=== PATIENT | male | born 1970 | race Caucasian/White ===

== ENCOUNTER → 2017-06-29 | Outpatient (CLI) | payer MEDICAID ==
[~2017-06-29] MED LIST: AMIT25TA PO; CLIN300C8 PO; GABA300C10 PO; HYDR-3237 PO; HYDR-3307 PO; IBUP-1222 PO; SERT100T PO; [UNRECOGNIZED DRUG - REMARK]
[2017-06-29 13:42] LABS: BASOPHILS # (AUTO) 0.05 x10^3/uL (0-0.1); BASOPHILS % (AUTO) 1 % (0-1); EOSINOPHILS # (AUTO) 0.46 x10^3/uL (0-0.4); EOSINOPHILS % (AUTO) 7 % (1-7); LYMPHOCYTES # (AUTO) 2.48 x10^3/uL (1-3.4); LYMPHOCYTES % (AUTO) 40 % (22-44); MD NO; MEAN CORPUSCULAR HEMOGLOBIN 31.6 pg (27.5-34.5); MEAN CORPUSCULAR HGB CONC 34.2 g/dL (33.2-36.2); MEAN CORPUSCULAR VOLUME 92.4 fL (81-97); MEAN PLATELET VOLUME 8.1 fL (7.4-10.4); MONOCYTES % (AUTO) 8 % (2-9); NEUTROPHILS # (AUTO) 2.79 x10^3/uL (1.8-6.8); NEUTROPHILS % (AUTO) 45 % (42-75); PLATELET COUNT 308 x10^3/uL (130-400); RED BLOOD COUNT 4.69 x10^6/uL (4.38-5.82); RED CELL DISTRIBUTION WIDTH 13.2 % (9.4-14.8)
[2017-06-29 13:50] LABS: ANION GAP 5 mmol/L (5-15); CALCIUM 8.7 mg/dL (8.5-10.1); CHLORIDE 106 mmol/L (98-107); CREATININE 0.73 mg/dL (0.7-1.3)
[2017-06-29 13:52] LABS: MICROSCOPIC NOT IND
[2017-06-29 13:53] LABS: INTERNATIONAL NORMALIZED RATIO 1.02 (0.93-1.1); PROTHROMBIN TIME 10.6 Seconds (9.6-11.5)
[2017-06-29 14:20] LABS: CULTURE INDICATED? NO
== END | disposition home or self-care (01) ==
LOC: STAR 12:29
PROVIDERS: ATTEND Neurological Surgery
DX: Z01.818 Encounter for other preprocedural examination (principal); M54.12 Radiculopathy, cervical region; M50.80 Other cervical disc disorders, unspecified cervical region
CPT/HCPCS: 36415; 71046; 80048; 81003; 85025; 85610; 85730; 93005

== ENCOUNTER 2017-07-03 05:33 | Inpatient (IN) | payer MEDICAID ==
[~2017-07-03] VITALS: Ht 175.3 cm; Wt 52.7 kg
[2017-07-03] MEDS ORDERED: LACTATED RINGERS 1,000 ML IV SCH (06:05)
[2017-07-03 06:06] VITALS: BP 127/58
[2017-07-03] MEDS ORDERED: THROMBIN 5,000 UNIT VIAL TP ONE (06:10)
[2017-07-03] MEDS ORDERED: BUPIVACAINE/PF 0.5% ONE (06:10)
[2017-07-03] MEDS ORDERED: EPINEPHRINE 1 MG/ML, 1ML ONE (06:11)
[2017-07-03] MEDS ORDERED: BACITRACIN 50,000 UNIT ONE (06:11)
[2017-07-03] MEDS ORDERED: PROMETHAZINE 12.5 MG SUPP PR PRN (07:00)
[2017-07-03] MEDS ORDERED: LABETALOL 5MG/ML, 20ML IV PRN ×2 (07:00→11:30)
[2017-07-03] MEDS ORDERED: DIAZEPAM 5 MG/ML, 2ML IVPush PRN (07:00)
[2017-07-03] MEDS ORDERED: ACETAMINOPHEN 325 MG TABLET PO PRN (07:00)
[2017-07-03] MEDS ORDERED: OXYcodone 5 MG/5 ML ORAL.SOL UDC PO PRN (07:00)
[2017-07-03] MEDS ORDERED: MEPERIDINE/PF 25MG/0.5ML IVPush PRN (07:00)
[2017-07-03] MEDS ORDERED: hydrALAzine 20 MG/ML, 1ML IV PRN (07:00)
[2017-07-03] MEDS ORDERED: ONDANSETRON 2MG/ML, 2ML IVPush PRN (07:00)
[2017-07-03] MEDS ORDERED: PROMETHAZINE 25 MG/ML, 1ML IV PRN (07:00)
[2017-07-03] MEDS ORDERED: ROCURONIUM 10MG/ML,5ML ONE (07:01)
[2017-07-03] MEDS ORDERED: CEFAZOLIN 1,000 MG ONE (07:01)
[2017-07-03] MEDS ORDERED: NEOSTIGMINE 1 MG/ML, 10ML ONE (07:01)
[2017-07-03] MEDS ORDERED: SUCCINYLCHOLINE 20 MG/ML, 10ML ONE (07:01)
[2017-07-03] MEDS ORDERED: PROPOFOL 10 MG/ML, 20ML ONE (07:01)
[2017-07-03] MEDS ORDERED: MIDAZOLAM 1 MG/ML, 5ML ONE (07:01)
[2017-07-03] MEDS ORDERED: GLYCOPYRROLATE 0.2MG/1ML, 5ML ONE (07:01)
[2017-07-03] MEDS ORDERED: FENTANYL PF 100 MCG/2ML ONE ×2 (07:01→09:29)
[2017-07-03] MEDS: HYDROmorphone 1 MG/ML, 1ML IV PRN ×6 (09:28→10:15)
[2017-07-03] MEDS ORDERED: HYDROmorphone 2 MG/ML, 1ML ONE ×2 (09:29→10:14)
[2017-07-03] MEDS ORDERED: ACETAMINOPHEN 650 MG/20.3 ML UDC ONE (09:29)
[2017-07-03] MEDS ORDERED: METHOCARBAMOL 750 MG TABLET ONE (09:29)
[2017-07-03] MEDS ORDERED: OXYcodone 5 MG/5 ML ORAL.SOL UDC ONE (09:30)
[2017-07-03] MEDS: FENTANYL PF 100 MCG/2ML IV PRN ×2 (09:40→09:59)
[2017-07-03] MEDS ORDERED: METHOCARBAMOL 750 MG TABLET PO ONE (10:00)
[2017-07-03 11:05] VITALS: BP 119/72
[2017-07-03] MEDS ORDERED: BISACODYL 10 MG SUPP PR PRN (11:30)
[2017-07-03] MEDS ORDERED: METHOCARBAMOL 750 MG TABLET PO PRN (11:30)
[2017-07-03] MEDS: AMITRIPTYLINE MC SCH ×2 (11:30→19:30)
[2017-07-03] MEDS ORDERED: ONDANSETRON 2MG/ML, 2ML IV PRN (11:30)
[2017-07-03] MEDS ORDERED: DIPHENHYDRAMINE 50 MG CAPSULE PO PRN (11:30)
[2017-07-03] MEDS ORDERED: HYDROcodone/APAP 10/325 MG TABLET PO PRN (11:30)
[2017-07-03] MEDS ORDERED: PROMETHAZINE 25 MG/ML, 1ML IM PRN (11:30)
[2017-07-03] MEDS ORDERED: MAGNESIUM HYDROXIDE 8%, 30ML UDC PO PRN (11:30)
[2017-07-03] MEDS: MORPHINE SULFATE 4 MG/ML, 1ML IV PRN ×2 (12:26→17:28)
[2017-07-03] MEDS: D5%-0.9% NACL+KCL 20MEQ 1,000 ML IV SCH ×2 (12:28→21:30)
[2017-07-03 13:50] VITALS: BP 139/89
[2017-07-03] MEDS: CEFAZOLIN PMX 1GM/50ML 50 ML IVPB SCH (15:16)
[2017-07-03 19:23] VITALS: BP 122/74
[2017-07-03] MEDS ORDERED: ZOLPIDEM 5MG TABLET PO PRN (21:00)
[2017-07-03] MEDS: OXYcodone/APAP 5/325MG TABLET PO PRN (22:53)
[2017-07-03 23:41] VITALS: BP 121/78
[2017-07-04] MEDS: CEFAZOLIN PMX 1GM/50ML 50 ML IVPB SCH (00:20)
[2017-07-04] MEDS: MORPHINE SULFATE 4 MG/ML, 1ML IV PRN ×2 (00:34→04:50)
[2017-07-04 03:03] VITALS: BP 111/68
[2017-07-04] MEDS: OXYcodone/APAP 5/325MG TABLET PO PRN ×2 (03:19→07:30)
[2017-07-04] MEDS: AMITRIPTYLINE MC SCH (03:30)
[2017-07-04 06:58] VITALS: BP 126/79
[2017-07-04] MEDS: D5%-0.9% NACL+KCL 20MEQ 1,000 ML IV SCH (07:30)
[2017-07-04] MEDS ORDERED: METH750T87 PO (08:54)
[2017-07-04] MEDS ORDERED: SENNA/DOCUSATE TABLET PO SCH (09:00)
[2017-07-04] MEDS ORDERED: CEPH-368 PO (09:17)
[2017-07-04] MEDS ORDERED: OXYC5CAP2 PO (09:17)
== END 2017-07-04 09:54 | disposition home or self-care (01) | DRG 473 ==
LOC: ORIP 05:33 → 4NOR 10:56 → DCLOUNGE 07-04 09:40
PROVIDERS: ADMIT Neurological Surgery; ATTEND Neurological Surgery
PROC: 0RB30ZZ Excision of Cervical Vertebral Disc, Open Approach (ICD-10-PCS; 2017-07-03)
PROC: 01N10ZZ Release Cervical Nerve, Open Approach (ICD-10-PCS; 2017-07-03)
PROC: 4A11X4G Monitoring of Peripheral Nervous Electrical Activity, Intraoperative, External Approach (ICD-10-PCS; 2017-07-03)
PROC: 0RG10A0 Fusion of Cervical Vertebral Joint with Interbody Fusion Device, Anterior Approach, Anterior Column, Open Approach (ICD-10-PCS; principal; 2017-07-03 07:00)
DX: M47.22 Other spondylosis with radiculopathy, cervical region (principal); M48.02 Spinal stenosis, cervical region; G24.3 Spasmodic torticollis; M50.122 Cervical disc disorder at C5-C6 level with radiculopathy; Z88.0 Allergy status to penicillin; F17.200 Nicotine dependence, unspecified, uncomplicated
CPT/HCPCS: 72040; C1713; J0171; J0690; J1170; J2250; J2704; J2710; J3010; J3360; J3490; J0330; J3480; J7120

== ENCOUNTER 2019-11-19 15:03 | Emergency (ER) | payer MEDICAID ==
[~2019-11-19] VITALS: Ht 175.3 cm; Wt 60.3 kg
[~2019-11-19 15:03] MED LIST changes: +CEPH-368 PO; +HYDR-3246 PO; -HYDR-3307 PO; +METH750T87 PO; +OXYC5CAP2 PO
[2019-11-19 16:47] VITALS: BP 140/93
== END 2019-11-19 17:33 ==
LOC: ED 17:15
DX: S93.491A Sprain of other ligament of right ankle, initial encounter (principal); X50.1XXA Overexertion from prolonged static or awkward postures, initial encounter; Y93.89 Activity, other specified; Y92.098 Other place in other non-institutional residence as the place of occurrence of the external cause; Y99.8 Other external cause status
CPT/HCPCS: 99283